=== PATIENT | male | born 1965 | race Caucasian/White ===

== ENCOUNTER 2025-05-06 14:23 | Inpatient (IN) | payer MEDICAID ==
[~2025-05-06] VITALS: Ht 190.5 cm; Wt 159.1 kg
[~2025-05-06 14:23] MED LIST: IBUP-1985 PO
--- NOTE | 2025-05-06 15:46 | ELECTROCARDIOGRAPH REPORT ---
[facility] Test Date: 2025-05-06 Test Time: 15:44:23 Pat Name: LOUISA GALEANO Department: [facility] Room: ORTHO [facility] Gender: M [employer]: : 1965 Requested By: STUART TOLEDO Order Number: [id number] Reading MD: Dr. Garry Nguyễn Measurements Intervals [place] Rate: 63 P: 65 MO: 214 QRS: 61 QRSD: 115 T: 77 QT: 471 QTc: 483 Interpretive Statements Sinus rhythm Borderline prolonged MO interval Nonspecific intraventricular conduction delay Electronically Signed On 05-07-2025 19:29:[address] Garry Nguyễn Please click the below link to view image of tracing.
[2025-05-06 16:02] LABS: MEAN PLATELET VOLUME 8.7 FL (7.4-10.4); RED CELL DISTRIBUTION WIDTH 16.5 % (11.5-14.5)
[2025-05-06 16:30] LABS: CREATININE 1.12 MG/DL (0.60-1.10); PRO BRAIN NATRIURETIC PEPTIDE 290 PG/ML (0-125); TOTAL CARBON DIOXIDE 25.0 MMOL/L (24-32); eCRCL 82 ML/MIN; eGFR 66 ML/MIN
--- NOTE | 2025-05-06 16:36 | RADIOLOGY REPORT ---
DI CHEST,SINGLE VIEW, HISTORY: CP COMPARISON: CHEST,SINGLE VIEW on DOS: 08/09/20 CHEST,SINGLE VIEW on DOS: 08/09/20 TECHNICAL DATA: 1 view of the chest was obtained. FINDINGS: Lines and tubes: None Cardiomediastinal silhouette: Prominent Pulmonary vasculature: Prominent Lung expansion: normal Lung airspace: normal Lung interstitium: normal Pleura: normal Pneumothorax: no Bones: Unremarkable Other: no IMPRESSION: Cardiomegaly with pulmonary vascular congestion.
--- NOTE | 2025-05-06 16:58 | Physician Documentation ---
History of Present Illness ~ Chief Complaint: Leg Pain Stated Complaint: LEG CRAMPS Time Seen by MD: 15:12 Mode of Arrival: EMS HPI 60-year-old male presents to the ED with a complaint of leg cramps x1 day. He states that he used methamphetamine yesterday was walking in his developed increased pain in his lower extremities. Patient also has bilateral lower extremity edema. He says that he has does not have congestive heart failure because he has got that is squared away Reports mild increasing shortness of breathing. Appears diaphoretic,denies any ,chest pain nausea vomiting Day of Onset: May 06, 2025 Tetanus witin 5 years: Yes Medication Reconciliation Allergies: Coded Allergies: Penicillins (Verified Allergy, Unknown, 05/06/25) Miscellaneous Medications Home Med List (No Home Medications), (Reported) Discontinued Medications Ibuprofen (Ibuprofen), 1 TAB PO Q8H PRN for pain Discontinued Reason: patient no longer taking Past Medical History Past Medical History: No Pertinent History Past Surgical History: no surgical history Patient History: Patient reports no known family medical history. Drug Use: marijuana, methamphetamine Lives with: Family Lives In: Home Review of Systems All Other Systems at this time: Reviewed and Negative ROS As stated above in the HPI, otherwise all systems are reviewed and negative. Physical Exam Vital Signs: Temperature: 98.3, Source: Oral, Heart Rate: 64, Respiratory Rate: 16, BP: 142/67, Pulse Oximetry: 93, Weight: 159.090 Oxygen Flow Rate: 0 Physical Exam General: Alert diaphoretic. Cardiovascular: Regular rate and rhythm, no murmurs. Gastrointestinal: Soft, nontender, nondistended. Bowels sounds present. Extremities: Gross anasarca bilateral lower extremities Neurologic: Oriented x4. Psychiatric: Normal mood and affect. Progress Results/Orders Results/Orders Orders - SILVANO TOLEDO SURVEY TECHNICIAN Chest,Single View (05/06/25 15:34) Monitor (05/06/25 15:34) Saline Lock (05/06/25 15:34) Oxygen (05/06/25 15:34) Ct Abdomen Pelvis (05/06/25 17:07) Completed Orders - SILVANO TOLEDO SURVEY TECHNICIAN Chest,Single View (05/06/25 15:34) Cbc/Diff (05/06/25 15:34) BMP (05/06/25 15:34) PBNP (05/06/25 15:34) Electrocardiogram (05/06/25 15:34) Hs Troponin I W Calculations (05/06/25 15:34) Hs Troponin I W Calculations (05/06/25 17:34) Hs Troponin I W Calculations (05/06/25 18:34) Cardiac Ptt (05/06/25 16:40) Pt Inr (05/06/25 16:40) D-Dimer (05/06/25 16:40) Magnesium Sulf-Water 2g/50ml (Magnesium (05/06/25 16:50) Ct Abdomen Pelvis (05/06/25 17:07) Iohexol 300mg/Ml 100ml Inj. (Omnipaque-3 (05/06/25 16:59) CMP (05/06/25 17:30) LA (05/06/25 17:32) Hgb A1c (05/06/25 15:53) CK (05/06/25 17:47) Ethanol (05/06/25 17:47) MG (05/06/25 17:47) PBNP (05/06/25 17:47) PHOS (05/06/25 17:47) TSH (05/06/25 17:47) Ua W/Microscopic, Cult If Ind (05/06/25 20:20) Medications Received in ER Medications (Trade) Dose Ordered Sig/Ama Route PRN Reason Start Time Stop Time Status Last Admin Dose Admin Magnesium Sulfate 50 ml @ 25 mls/hr ONCE ONCE IV 05/06/25 16:50 05/06/25 18:49 DC 05/06/25 17:48 25 MLS/HR Sodium Chloride 1,000 ml @ 20 mls/hr Q48H IV 05/06/25 17:50 05/06/25 18:56 20 MLS/HR (K-DUR tablet) 20 meq Q4H PRN PO Potassium 3.1-3.4 05/06/25 17:50 05/09/25 17:49 05/06/25 18:57 20 MEQ Vital Signs 05/06/25 05/06/25 05/06/25 05/06/25 14:40 15:23 15:25 16:45 Temp 97.8 98.3 Pulse 75 64 62 Resp 22 16 16 16 B/P (MAP) 130/70 142/67 (92) 117/58 (77) Pulse Ox 96 93 94 O2 Flow Rate 0 0 Laboratory Tests Test 05/06/25 15:53 05/06/25 17:47 White Blood Count 5.7 Red Blood Count 4.11 L Hemoglobin 13.2 L Hematocrit 38.1 L Mean Corpuscular Volume 92.7 Mean Corpuscular Hemoglobin 32.1 H Mean Corpuscular Hemoglobin Concent 34.6 Red Cell Distribution Width 16.5 H Platelet Count 45 *L Mean Platelet Volume 8.7 Neutrophils (%) (Auto) 67.7 Lymphocytes (%) (Auto) 14.8 L Monocytes (%) (Auto) 15.0 H Eosinophils (%) (Auto) 1.8 Basophils (%) (Auto) 0.7 Neutrophils # (Auto) 3.8 Lymphocytes # (Auto) 0.8 L Monocytes # (Auto) 0.9 Eosinophils # (Auto) 0.1 Basophils # (Auto) 0.0 CBC Comment Prothrombin Time 13.5 H INR International Normalized Ratio 1.4 APTT (Heparin Protocol) 29 L D-Dimer 0.96 H D-Dimer Comment Coagulation Comments Sodium Level 138 134 L Potassium Level 3.2 L 3.2 L Chloride Level 106 102 Carbon Dioxide Level 25.0 26.3 Anion Gap 7 L 6 L Blood Urea Nitrogen 23 H 23 H Creatinine 1.12 H 0.89 Estimated GFR/1.73 m2 66 87 BUN/Creatinine Ratio 20.5 H 25.8 H Glucose Level 107 H 84 Hemoglobin A1c 5.0 Calcium Level 8.4 L 8.3 L Troponin I High Sensitivity 71 63 Pro-B-Type Natriuretic Peptide 290 H 248 H Albumin 3.0 L 2.8 L Chemistry Comments HIV (1&2) Antibody Non-reactive Lactic Acid Level 3.3 H Phosphorus Level 3.3 Magnesium Level 9.7 *H Total Bilirubin 4.2 H Aspartate Amino Transf (AST/SGOT) 87 H Alanine Aminotransferase (ALT/SGPT) 42 Alkaline Phosphatase 82 Total Creatine Kinase 1683 H Troponin I High Sens Percent Delta 11 Troponin I Hi Sens Absolute Change -8 Total Protein 7.0 Globulin 4.2 Albumin/Globulin Ratio 0.7 L Thyroid Stimulating Hormone (TSH) 2.94 Ethyl Alcohol Level < 10 Medical Decision Making Findings This 60-year-old male came in for concerns over leg cramps. Departure Disposition: ADMITTED INPATIENT Impression: Primary Impression: Leg cramps Additional Impression: Heart failure Referrals: NO PRIMARY CARE PROVIDER (PCP) Signature Scribe Signature: b Attestation: Scribed for Silvano Toledo [employer] Department Chair by Silvano Yi NP . 05/06/25 22:54 SILVANO TOLEDO NP May 06, 2025 16:58
[2025-05-06] MEDS ORDERED: iohexol 300mg/ml 100ml inj. ONE (16:59)
[2025-05-06 17:10] LABS: INR 1.4 INR
[2025-05-06] MEDS: magnesium sulf-water 2g/50mL 50 ML IV ONE (17:48)
[2025-05-06] MEDS ORDERED: magnesium hydroxide 30ml (MOM) UD suspension PO PRN (17:50)
[2025-05-06] MEDS ORDERED: bisacodyl 10mg suppository rectal RC PRN (17:50)
[2025-05-06] MEDS ORDERED: magnesium sulf-water 2g/50mL 50 ML IV PRN (17:50)
[2025-05-06] MEDS ORDERED: magnesium Cl slow-release 64mg tablet PO PRN (17:50)
[2025-05-06] MEDS ORDERED: potassium Cl 40MEQ/1/2NS 520ml 520 ML IV PRN (17:50)
[2025-05-06] MEDS ORDERED: magnesium sulf-water 4G/100mL 100 ML IV PRN (17:50)
[2025-05-06] MEDS ORDERED: ondansetron 4mg rapidly disintigrating tab PO PRN (17:50)
[2025-05-06] MEDS ORDERED: HYDROcodone/acetaminophen 10/325mg tab PO PRN (17:50)
[2025-05-06] MEDS ORDERED: mag hydrox/Alum hydrox/simeth 30ml oral suspension PO PRN (17:50)
--- NOTE | 2025-05-06 17:50 | RADIOLOGY REPORT ---
Indication: weakness Technique: CT axial images of the abdomen and pelvis are obtained with intravenous contrast. Coronal and sagittal reformats were obtained. Radiation Dose Information: CTDI volume is 33 mGy. Dose-length product is 2050 mGy*cm Comparison: None FINDINGS: Lung bases demonstrate atelectasis. Adrenal glands unremarkable. Spleen enlarged measuring 19 cm AP. Pancreas unremarkable. No CT eviden ce for cholelithiasis. Cirrhotic morphology liver. No enhancing hepatic lesion. Sequela of portal hypertension including gastroesophageal varices, perisplenic varices, gastro renal shunt. Small hiatal hernia. Stomach is relatively nondistended. Small bowel loops are distended up to appro ximately 3.5 cm. Colonic diverticular disease. Moderate volume stool in the colon.m no secondary signs for appendiciti s. Abdominal aorta normal in caliber. Atherosclerotic disease. Bladder partially distended. No free pel griffin fluid. Fat containing left inguinal hernia measuring 3.4 x 4 cm. No inguinal lymphadenopathy. Mesenteric haziness / stranding with small lymph nodes. Moderate bilateral sacroiliac degenerative joint disease. Moderate thoracolumbar degenerative disc di sease. Moderate to advanced lumbar facet hypertrophic changes. IMPRESSION: Distention of small-bowel loops up to 3.5 cm which could be secondary to bowel obstruction, ileus. R ecommend surgical consultation for evaluation. Mesenteric haziness/ stranding with small lymph nodes which can be secondary to infectious, inflammat ory etiologies, sclerosing mesenteritis/ mesenteric panniculitis. Cirrhotic morphology liver with sequela of portal hypertension including gastroesophageal, splenic va rices, severe splenomegaly. Atherosclerotic disease. Colonic diverticular disease. Other findings as described above.
[2025-05-06] MEDS: furosemide 10 MG/1 ML 10ml inj IV ONE ×2 (18:00→20:12)
--- NOTE | 2025-05-06 18:08 | HISTORY AND PHYSICAL ---
History & Physical Providers to CC ~ chief complaint, bilateral lower extremity edema, cramps History of Present Illness Reason for Admit\Complaint: As above History of Present Illness This is a 60-year-old male, with history of multiple medical problems including chronic amphetamine abuse including currently, morbid obesity BMI 43, hypertension, liver cirrhosis associated with portal hypertension splenomegaly, and thrombocytopenia platelets 45, chronic kidney disease, CHF systolic ejection fraction 50% 2020, presented today to emergency department coming from detention, with chief complaint bilateral lower extremity edema associated with cramps; in addition presents to the ED with a complaint of leg cramps x1 day. He states that he used methamphetamine yesterday was walking in his developed increased pain in his lower extremities. Patient also has bilateral lower extremity edema. He says that he has does not have congestive heart failure because he has got that is squared awayReports mild increasing shortness of breathing. Appears diaphoretic,denies any ,chest pain nausea vomiting. In emergency department he was evaluated by medical provider, diagnosed with liver cirrhosis portal hypertension splenomegaly severe thrombocytopenia hypokalemia morbid obesity, and decision was made to admit patient for further evaluation and treatment, no additional complaint or concern. Allergies: Coded Allergies: Penicillins (Verified Allergy, Unknown, 05/06/25) Active prescriptions I reviewed reconciled Home Medications Home Medications Active Ibuprofen 600 Mg Tablet 1 Tab PO Q8H PRN 5 Days Past Medical History Past Medical History As in HPI Past Surgical History Surgical History Comment As in HPI Family History Family History: Family history was reviewed; no changes noted. Past Social History Social History Comment Positive for chronic amphetamine abuse including currently, deny alcohol abuse and tobacco abuse, just come in from long-term now, poor social support Health Maintenance Health Maintenance None ROS ROS Constitutional : no fever , no chills, or weakness. No diaphoresis. Allergic/Immunologic, no lymphadenopathy, no hives, no skin eruptions. Eyes, no recent visual changes, no eye pain, no photophobia. Ears, nose, mouth, throat, no sore throat, no nosebleed, no ear pain. Cardiovascular, no palpitations, skipped beats, chest pain, no peripheral edema, Respiratory, no dyspnea, orthopnea, cough, hemoptysis, chest wall pain. Gastrointestinal, no abdominal pain, nausea, vomiting, constipation or diarrhea. : no dysuria, hematuria, pelvic pain, urethral d/c. Endocrine, no polyuria, polydipsia, recent unintentional weight gain or loss. Hematologic/Lymphatic, no petechiae, no enlarged lymph nodes, no bone pain. Integumentary, no rash, no skin lesions, Musculoskeletal, no muscle aches, or pain, no muscle cramps, no recent change in gait positive for bilateral lower extremity Neurological, no dizziness, no headache, no syncope, no paresthesia. Psychiatric, no delusions, visual hallucinations, or hearing hallucinations. ROS - in rest is as in HPI. Exam Vitals: Vital Signs Date Time Temp Pulse Resp B/P (MAP) Pulse Ox O2 Delivery O2 Flow Rate FiO2 05/06/25 15:25 16 05/06/25 15:23 98.3 64 93 0 Vital signs, stable ,afebrile. Pulse Oximetry reflects adequate oxygenation. BMI is 43, weight 159 kg General: well developed, well nourished. Awake , alert, intermittently confused, and oriented x4, resting comfortably in the bed, in no acute distress . Skin: Warm, dry, no pallor, no rash or petechiae. HEENT: Atraumatic, normocephalic, EOMI, anicteric sclera B; pink conjunctiva; PERRLA, normal oropharynx, moist oral and nasal mucosa. Tympanic membrane , nose , throat clear. Neck: Trachea midline. Supple, full range of motion, no JVD, bruit , hepatojugular reflex , lymphadenopathy or masses, or other lesions Cardiac: Regular rhythm, regular rate no murmurs, rubs, or gallops. Normal S1 and S2, no S3 noticed. PMI is normal. Respiratory: Equal breath sounds bilaterally, no tachypnea; lungs clear to auscultation bilaterally, no wheezing ,rub or rales, or crackles. Chest wall is symmetric and without deformity. No signs of trauma. Chest wall is nontender. No signs of respiratory distress. Resonance is normal upon percussion bilaterally. Gastrointestinal: Abdomen symmetric, non-distended, soft, non-tender, normal bowel sounds x4 quadrant, normoactive, no hepatosplenomegaly , no masses , no bruit, no flank pain bilaterally. No voluntary guarding, rebound, or rigidity. No tenderness to percussion. No pulsatile masses. Equal femoral pulses. No Wang's sign or McBurney point tenderness. Back; no CVA tenderness bilaterally, no deformities. Neck and back are without deformity as well. No tenderness noted on palpation of the spinous processes. Spinous processes are midline. Cervical, thoracic, and lumbar paraspinal muscles are not tender and are without spasm. : normal external genitalia, without lesions, swelling, masses or tenderness. Musculoskeletal: Extremities, normal range of motion, non-tender, muscle strength 5/5 x 4. Negative Homans signs bilaterally on lower extremity. Distal pulses full symmetrical, no clubbing, cyanosis , bilateral lower extremity plus three edema up to the thigh Neurological: Speech is clear, alert, and oriented x 4. No motor or sensory deficit, deep tendon reflexes normal, cerebellar intact. Cranial nerves II-XII intact. Psych: Alert and or appropriate, normal affect. Vascular: Good distal pulses, which are equal x4; capillary refill less than 2 seconds. Lymphatic, no lymphadenopathy. Diagnostic Data Last Recorded Lab Results: 05/06/25 1553 05/06/25 1553 Diagnostic Data: Laboratory Tests Test 05/06/25 15:53 Prothrombin Time 13.5 SECONDS (9.0-12.0) H INR International Normalized Ratio 1.4 INR APTT (Heparin Protocol) 29 SECONDS (45-60) L D-Dimer 0.96 MG/L FEU (0-0.50) H D-Dimer Comment Coagulation Comments Advance Care Planning Advanced Care plannin - 30 Minutes Additional Plan Assessment Liver cirrhosis associated with portal hypertension and severe splenomegaly Chronic amphetamine abuse including currently, Acute amphetamine intoxication Hypokalemia Morbid obesity BMI 43 Severe thrombocytopenia, platelets 45 CHF systolic in exacerbation Hypertension poor control on no medications Metabolic encephalopathy secondary to amphetamine intoxication Chronic kidney disease Plan IV Lasix Transfuse platelets prn Additional lab work pending Serial troponin EKG Nutrition consult Substance abuse navigator consult Echocardiography pending CT of the head and CT of the chest pending Control blood pressure Reconciled home medications DVT gastropathy prophylaxis addressed Sepsis Screening Reassessment Date: May 06, 2025 Date of Service: May 06, 2025 Billing Provider: CECILIA CHEUNG MD Common Visit Codes: 24971-[id number] INP/OBS CARE (HIGH) Secondary Visit Codes: 74494-[id number] CARE PLAN 30 MINUTES CECILIA CHEUNG MD May 06, 2025 18:08
[2025-05-06 18:19] LABS: CREATININE 0.89 MG/DL (0.60-1.10); TOTAL CARBON DIOXIDE 26.3 MMOL/L (24-32); eCRCL 103 ML/MIN; eGFR 87 ML/MIN
--- NOTE | 2025-05-06 18:35 | RADIOLOGY REPORT ---
Exam: CT CT HEAD History: ALOC Technique: [address] images through the posterior fossa and the supratentorial compart ment were acquired without contrast and imaged using soft tissue and bone algorithms. RADIATION DOSE: DLP 1335.34 mGy.cm; CTDI vol 67.24 mGy. Comparison: None Findings: There is no evidence of an intracranial hemorrhage, acute large vessel infarct, mass effect, or midli ne shift. There is mild cerebral atrophy. No significant calcification of the carotid siphons. Air-fluid levels in bilateral maxillary sinuses. The calvarium, orbits, remaining paranasal sinuses, sella, middle ears, and mastoids are unremarkable. The superficial soft tissues are within normal limits. Impression: 1. No acute intracranial abnormality. 2. Bilateral maxillary sinus disease.
--- NOTE | 2025-05-06 18:44 | RADIOLOGY REPORT ---
EXAM: CT CT CHEST History: Sepsis Comparison Study: DI CHEST,SINGLE VIEW on DOS: 05/06/25, CHEST,SINGLE VIEW on DOS: 08/09/20 TECHNIQUE: Multidetector CT of the chest was performed. Imaging was performed without IV contrast. Ax ial, coronal, and sagittal multiplanar reformats were obtained from the axial data set by the technol fe. Radiation Dose : CTDI vol 18.68 mGy, DLP 645.6 mGy*cm. Findings: Lungs: Bilateral dependent atelectasis. The lungs are otherwise clear. Pleura: Unremarkable Heart/Great vessels: Mild cardiomegaly. Moderate coronary atherosclerosis. Mediastinum: Small hiatal hernia. Unremarkable Soft tissues/Bones: Moderate multilevel degenerative changes of the thoracic spine Splenomegaly. Multiple small retroperitoneal lymph nodes. Impression: 1. No acute cardiopulmonary disease. 2. Mild cardiomegaly. 3. Splenomegaly. 4. Multiple small retroperitoneal lymph nodes, nonspecific.
[2025-05-06 18:54] LABS: PHOSPHORUS 3.3 MG/DL (2.3-4.5)
[2025-05-06 18:55] LABS: ETHANOL < 10 MG/DL (<10)
[2025-05-06] MEDS: normal saline 1000ml 1,000 ML IV SCH (18:56)
[2025-05-06] MEDS: potassium Cl 20 mEq SR tablet PO PRN (18:57)
[2025-05-06 19:16] LABS: PRO BRAIN NATRIURETIC PEPTIDE 248 PG/ML (0-125)
[2025-05-06] MEDS: furosemide 10 MG/1 ML 10ml inj IV SCH (20:00)
[2025-05-06] MEDS: K and/or MAG REPLACEMENT MC SCH (20:07)
[2025-05-06] MEDS: docusate sod 100mg capsule PO SCH (20:12)
[2025-05-06] MEDS ORDERED: NO HOME MEDS (20:20)
[2025-05-06 20:57] LABS: HIV ANTIBODY 1&2 RAPID NON-REACTIVE (Neg)
[2025-05-06 21:35] LABS: LEUKOCYTE ESTERASE ,URINE NEGATIVE (Neg); OCCULT BLOOD,URINE MODERATE (Neg)
[2025-05-06 21:36] LABS: UA COLLECTION TYPE URINAL
[2025-05-06 21:42] LABS: HYALINE CASTS 0-3 /LPF (NEGATIVE); MUCUS STRANDS MODERATE /LPF (Neg); NITRITES, URINE NEGATIVE (Neg); SQUAMOUS EPITHELIAL CELL,UR FEW /LPF (FEW)
[2025-05-06 21:44] LABS: AMORPHOUS URATES 1+
[2025-05-06 21:53] LABS: URINE AMPHETAMINE SCREEN POSITIVE (Neg); URINE BARBITUATE SCREEN NEGATIVE (Neg); URINE BENZODIAZEPINES SCREEN NEGATIVE (Neg); URINE CANNABINOID SCREEN POSITIVE (Neg); URINE COCAINE SCREEN NEGATIVE (Neg); URINE METHADONE SCREEN NEGATIVE (Neg); URINE OPIATE SCREEN NEGATIVE (Neg); URINE PHENCYCLIDINE SCREEN NEGATIVE (Neg)
[2025-05-07] VITALS (7 sets, daily range): BP systolic 120–134; BP diastolic 62–68; PULSE 52–68; RESP 15–22; TEMP 98–98.4; O2SAT 96–99
[2025-05-07] MEDS: potassium Cl 20 mEq SR tablet PO PRN (01:04)
[2025-05-07] MEDS: HYDROcodone/acetaminophen 5mg/325mg tablet PO PRN (05:35)
[2025-05-07 06:43] LABS: MEAN PLATELET VOLUME 8.9 FL (7.4-10.4); RED CELL DISTRIBUTION WIDTH 16.5 % (11.5-14.5)
[2025-05-07 07:09] LABS: CREATININE 0.87 MG/DL (0.60-1.10); LDL CHOLESTEROL 68 MG/DL (50-100); TOTAL CARBON DIOXIDE 27.6 MMOL/L (24-32); eCRCL 105 ML/MIN; eGFR 89 ML/MIN
[2025-05-07 07:10] LABS: CHOL/HDL RATIO 2.5 (0.00-4.99)
[2025-05-07] MEDS: pantoprazole 40mg Tablet.DR PO SCH (09:32)
--- NOTE | 2025-05-07 09:53 | PROGRESS NOTE ---
Daily Progress Note Providers to CC ~ feels better today, tolerating medication fine good appetite good sleep Central Line/PICC still needed: No Pascal-Non Protocol Pascal Indications Met/Not Met: F/C Indications Not Met Antibiotic Timeout Antibiotic Ordered?: No MRSA Education MRSA Education Provided to pt: No Subjective As above Objective Vital Signs Date Time Temp Pulse Resp B/P (MAP) Pulse Ox O2 Delivery O2 Flow Rate FiO2 05/07/25 06:35 16 05/07/25 02:05 99 Room Air 05/07/25 01:05 57 05/07/25 00:55 98.2 121/66 (84) 05/06/25 22:04 0 Vital signs, stable ,afebrile. Pulse Oximetry reflects adequate oxygenation. General: well developed, well nourished. Awake , alert, and oriented x4, resting comfortably in the bed, in no acute distress . Skin: Warm, dry, no pallor, no rash or petechiae. HEENT: Atraumatic, normocephalic, EOMI, anicteric sclera B; pink conjunctiva; PERRLA, normal oropharynx, moist oral and nasal mucosa. Tympanic membrane , nose , throat clear. Neck: Trachea midline. Supple, full range of motion, no JVD, bruit , hepatojugular reflex , lymphadenopathy or masses, or other lesions Cardiac: Regular rhythm, regular rate no murmurs, rubs, or gallops. Normal S1 and S2, no S3 noticed. PMI is normal. Respiratory: Equal breath sounds bilaterally, no tachypnea; lungs clear to auscultation bilaterally, no wheezing ,rub or rales, or crackles. Chest wall is symmetric and without deformity. No signs of trauma. Chest wall is nontender. No signs of respiratory distress. Resonance is normal upon percussion bilaterally. Gastrointestinal: Abdomen symmetric, non-distended, soft, non-tender, normal bowel sounds x4 quadrant, normoactive, no hepatosplenomegaly , no masses , no bruit, no flank pain bilaterally. No voluntary guarding, rebound, or rigidity. No tenderness to percussion. No pulsatile masses. Equal femoral pulses. No Wang's sign or McBurney point tenderness. Back; no CVA tenderness bilaterally, no deformities. Neck and back are without deformity as well. No tenderness noted on palpation of the spinous processes. Spinous processes are midline. Cervical, thoracic, and lumbar paraspinal muscles are not tender and are without spasm. : normal external genitalia, without lesions, swelling, masses or tenderness. Musculoskeletal: Extremities, normal range of motion, non-tender, muscle strength 5/5 x 4. Negative Homans signs bilaterally on lower extremity. Distal pulses full symmetrical, no clubbing, cyanosis , edema. Neurological: Speech is clear, alert, and oriented x 4. No motor or sensory deficit, deep tendon reflexes normal, cerebellar intact. Cranial nerves II-XII intact. Psych: Alert and or appropriate, normal affect. Vascular: Good distal pulses, which are equal x4; capillary refill less than 2 seconds. Lymphatic, no lymphadenopathy. 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, associated with portal hypertension and severe splenomegaly Chronic amphetamine abuse including currently, Acute amphetamine intoxication Hypokalemia Morbid obesity BMI 43 Severe thrombocytopenia, CHF systolic in exacerbation Hypertension poor control on no medications Metabolic encephalopathy secondary to amphetamine intoxication Chronic kidney disease Plan IV Lasix Transfuse platelets prn Additional lab work pending Serial troponin EKG Nutrition consult Substance abuse navigator consult Echocardiography pending CT of the head and CT of the chest completed Control blood pressure Reconciled home medications DVT gastropathy prophylaxis addressed Sepsis Screening Reassessment Date: May 07, 2025 Date of Service: May 07, 2025 Billing Provider: CECILIA CHEUNG MD Common Visit Codes: [id number] INP/OBS CARE(HIGH) CECILIA CHEUNG MD May 07, 2025 09:53
[2025-05-07] MEDS: ringers solution, lacted 1,000 ML IV ONE (16:00)
--- NOTE | 2025-05-07 16:00 | CARDIOLOGY REPORT ---
APPROVED REPORT EXAM: Comprehensive 2D, Doppler, and color-flow Echocardiogram. Patient Location: 402 Blood Pressure: 121/66 mmHg Heart Rate: 54 bpm Indications Congestive Heart Failure Methamphetamine Use NO PLASTERER ROUGH Previous ECHO: 01/10/16, [facility], EF: 50; modRVE/LAE; mMR 2D Dimensions LA Diam4.2 cm IVSd 0.9 (0.7-1.1cm) LVDd 4.6 cm PWd 1.1 (0.7-1.1cm) IVSs 1.4 (0.8-1.2cm) LVDs 3.2 (2.5-4.0cm) PWs 1.6 (0.8-1.2cm) LVOT Diameter 2.06 (1.8-2.4cm) LVEF(%) 57.2 (>50%) Ao Asc Diam.3.46 cm IVC 22.95 mmFS (%) 30.0 % SV 56.0 ml CO 3.1 L/min M-Mode Dimensions Left Atrium(MM) 4.20 (2.5-4.0cm) Aortic Root 3.31 (2.2-3.7cm) Aortic Cusp Exc 2.07 (1.5-2.0cm) Aortic Valve AoV Peak Rico. 206.5 cm/s AoV VTI 38.3 cm AO Peak GR. 17.1 mmHg AO Mean GR. 8 mmHg LVOT VTI 23.09 cm LVOT Peak Rico. 111.3 cm/s LEELA(VTI)/BSA 2.01 cm2/m2 LEELA (VTI) 2.01 cm2 Mitral Valve MV E Velocity 64.7 cm/s MV Peak Gr. 3 mmHg MV DECEL TIME 384 ms MV A Velocity 85.3 cm/s MV PHT 88 ms E/A Ratio 0.8 MVA (PHT) 2.50 cm2 MV VMax88.5 cm/s TDI Lateral E' P. V10.90 cm/s E/Lateral E' 5.9 Pulmonary Valve PAEDP12.63 mmHg Tricuspid Valve TR P. Velocity 239 cm/s RAP ESTIMATE 10 mmHg TR Peak Gr. 23 mmHg RVSP 33 mmHg LEFT VENTRICLE Normal LV size and wall thickness. Overall systolic function is normal. Overall LVEF is 55-60%. RIGHT VENTRICLE Right ventricle is mildly dilated with adequate function. ATRIA Left atrium is mildly dilated. AORTIC VALVE Trileaflet AV appears mildly sclerotic without stenosis. No insufficiency. MITRAL VALVE Mild mitral annular calcification without stenosis. Trace regurgitation. TRICUSPID VALVE The tricuspid valve is normal in structure with trace regurgitation. PULMONIC VALVE Pulmonic valve is grossly normal in structure with physiologic insufficiency. GREAT VESSELS The aortic root is normal in size. The ascending aorta is normal in size. IVC is dilated and collapse s greater than 50% with inspiration. PERICARDIUM Normal pericardium. No effusion. Other Information Study Quality: Adequate Conclusion Overall LVEF is 55-60%. Normal LV size and wall thickness. Overall systolic function is normal. Right ventricle is mildly dilated with adequate function. Trileaflet AV appears mildly sclerotic without stenosis. No insufficiency. Mild mitral annular calcification without stenosis. Trace regurgitation. Pulmonic valve is grossly normal in structure with physiologic insufficiency. Normal pericardium. No effusion.
--- NOTE | 2025-05-07 18:05 | VASCULAR REPORT ---
BILATERAL LOWER EXTREMITY VENOUS DUPLEX REASON FOR EXAMINATION: Bilateral lower extremity pain and edema. COMPARISON: None TECHNIQUE: Using real-time freeze-frame technique with a high-frequency transducer, multiple longitu dinal and transverse sections were obtained. Simultaneous color flow and spectral Doppler imaging wa s performed. FINDINGS: There is good visualization of the deep venous system with no intraluminal filling defects identified. Normal venous compressibility is seen and there is flow augmentation. Color flow Doppler imaging is unremarkable. IMPRESSION: NO EVIDENCE OF DEEP VENOUS THROMBOSIS.
[2025-05-07] MEDS: ondansetron/PF 4mg/2ml inj IV PRN (21:25)
[2025-05-08 06:00] VITALS: BP 114/58; PULSE 59; RESP 16; TEMP 97.6; O2SAT 93
[2025-05-08 06:23] LABS: MEAN PLATELET VOLUME 9.5 FL (7.4-10.4); RED CELL DISTRIBUTION WIDTH 16.2 % (11.5-14.5)
[2025-05-08 06:28] LABS: CREATININE 0.94 MG/DL (0.60-1.10); TOTAL CARBON DIOXIDE 30.4 MMOL/L (24-32); eCRCL 97 ML/MIN; eGFR 81 ML/MIN
[2025-05-08 10:00] VITALS: BP 135/63; PULSE 57; RESP 20; TEMP 98.3; O2SAT 94
[2025-05-08] MEDS: ringers solution, lacted 1,000 ML IV ONE (13:20)
[2025-05-08] MEDS: lactulose 20gm/30ml cup PO SCH (13:45)
[2025-05-08] MEDS: normal saline 1000ml 1,000 ML IV SCH (14:50)
--- NOTE | 2025-05-08 16:11 | PROGRESS NOTE ---
Daily Progress Note Providers to CC ~ no new complaint, resting comfortably in the bed Central Line/PICC still needed: No Pascal-Non Protocol Pascal Indications Met/Not Met: F/C Indications Not Met Antibiotic Timeout Antibiotic Ordered?: Yes MRSA Education MRSA Education Provided to pt: Yes Subjective As above Objective Vital Signs Date Time Temp Pulse Resp B/P (MAP) Pulse Ox O2 Delivery O2 Flow Rate FiO2 05/08/25 10:00 98.3 57 20 135/63 (87) 94 Room Air 05/06/25 22:04 0 Vital signs, stable ,afebrile. Pulse Oximetry reflects adequate oxygenation. General: well developed, well nourished. Awake , intermittently confused, alert, and oriented x4, resting comfortably in the bed, in no acute distress . Skin: Warm, dry, no pallor, no rash or petechiae. HEENT: Atraumatic, normocephalic, EOMI, anicteric sclera B; pink conjunctiva; PERRLA, normal oropharynx, moist oral and nasal mucosa. Tympanic membrane , nose , throat clear. Neck: Trachea midline. Supple, full range of motion, no JVD, bruit , hepatojugular reflex , lymphadenopathy or masses, or other lesions Cardiac: Regular rhythm, regular rate no murmurs, rubs, or gallops. Normal S1 and S2, no S3 noticed. PMI is normal. Respiratory: Equal breath sounds bilaterally, no tachypnea; lungs clear to auscultation bilaterally, no wheezing ,rub or rales, or crackles. Chest wall is symmetric and without deformity. No signs of trauma. Chest wall is nontender. No signs of respiratory distress. Resonance is normal upon percussion bilaterally. Gastrointestinal: Abdomen symmetric, non-distended, soft, non-tender, normal bowel sounds x4 quadrant, normoactive, no hepatosplenomegaly , no masses , no bruit, no flank pain bilaterally. No voluntary guarding, rebound, or rigidity. No tenderness to percussion. No pulsatile masses. Equal femoral pulses. No Wang's sign or McBurney point tenderness. Back; no CVA tenderness bilaterally, no deformities. Neck and back are without deformity as well. No tenderness noted on palpation of the spinous processes. Spinous processes are midline. Cervical, thoracic, and lumbar paraspinal muscles are not tender and are without spasm. : normal external genitalia, without lesions, swelling, masses or tenderness. Musculoskeletal: Extremities, normal range of motion, non-tender, muscle strength 5/5 x 4. Negative Homans signs bilaterally on lower extremity. Distal pulses full symmetrical, no clubbing, cyanosis , edema. Neurological: Speech is clear, alert, and oriented x 4. No motor or sensory deficit, deep tendon reflexes normal, cerebellar intact. Cranial nerves II-XII intact. Psych: Alert and or appropriate, normal affect. Vascular: Good distal pulses, which are equal x4; capillary refill less than 2 seconds. Lymphatic, no lymphadenopathy. 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, associated with portal hypertension and severe splenomegaly Metabolic encephalopathy associated with hyper ammonia anemia Chronic amphetamine abuse including currently, Acute amphetamine intoxication Hypokalemia Morbid obesity BMI 43 Severe thrombocytopenia, CHF systolic in exacerbation Hypertension poor control on no medications Chronic kidney disease Plan IV fluids, Transfuse platelets prn Additional lab work pending Serial troponin EKG Nutrition consult Substance abuse navigator consult Echocardiography completed CT of the head and CT of the chest completed Control blood pressure Lactulose rifaximin on board Reconciled home medications DVT gastropathy prophylaxis addressed Sepsis Screening Reassessment Date: May 08, 2025 Date of Service: May 08, 2025 Billing Provider: CECILIA CHEUNG MD Common Visit Codes: [id number] INP/OBS CARE(HIGH) CECILIA CHEUNG MD May 08, 2025 16:11
[2025-05-08 18:00] VITALS: BP 103/58; PULSE 64; RESP 20; TEMP 98.3; O2SAT 94
[2025-05-08] MEDS: rifaximin 550mg tablet PO SCH (19:40)
[2025-05-08 22:00] VITALS: BP 109/45; PULSE 63; RESP 18; TEMP 98.5; O2SAT 99
[2025-05-09 06:00] VITALS: BP 141/57; PULSE 61; RESP 17; TEMP 97.7; O2SAT 95
[2025-05-09 06:59] LABS: MEAN PLATELET VOLUME 9.7 FL (7.4-10.4); RED CELL DISTRIBUTION WIDTH 16.4 % (11.5-14.5)
[2025-05-09 07:48] LABS: CREATININE 0.88 MG/DL (0.60-1.10); TOTAL CARBON DIOXIDE 27.8 MMOL/L (24-32); eCRCL 104 ML/MIN; eGFR 88 ML/MIN
[2025-05-09 07:54] LABS: BANDS% (MANUAL) 1.0 % (0-10); EOSINOPHILS % (MANUAL) 2.0 % (0-6); LYMPHOCYTES % (MANUAL) 21.0 % (21-51); MONOCYTES % (MANUAL) 17.0 % (2-12); NEUTROPHILS % (MANUAL) 57.0 % (42-75); PLATELET ESTIMATE DECREASED; REACTIVE LYMPHOCYTES % 2.0 % (0-0)
[2025-05-09 10:00] VITALS: BP 133/64; PULSE 57; RESP 17; TEMP 97.6; O2SAT 98
--- NOTE | 2025-05-09 15:50 | PROGRESS NOTE ---
Daily Progress Note Providers to CC ~ no new complaint today, resting comfortably in the bed Central Line/PICC still needed: No Pascal-Non Protocol Pascal Indications Met/Not Met: F/C Indications Not Met Antibiotic Timeout Antibiotic Ordered?: Yes MRSA Education MRSA Education Provided to pt: Yes Subjective As above Objective Vital Signs Date Time Temp Pulse Resp B/P (MAP) Pulse Ox O2 Delivery O2 Flow Rate FiO2 05/09/25 10:00 97.6 57 17 133/64 (87) 98 Room Air 05/06/25 22:04 0 Vital signs, stable ,afebrile. Pulse Oximetry reflects adequate oxygenation. General: well developed, well nourished. Awake , alert, and oriented x4, resting comfortably in the bed, in no acute distress . Skin: Warm, dry, no pallor, no rash or petechiae. HEENT: Atraumatic, normocephalic, EOMI, anicteric sclera B; pink conjunctiva; PERRLA, normal oropharynx, moist oral and nasal mucosa. Tympanic membrane , nose , throat clear. Neck: Trachea midline. Supple, full range of motion, no JVD, bruit , hepatojugular reflex , lymphadenopathy or masses, or other lesions Cardiac: Regular rhythm, regular rate no murmurs, rubs, or gallops. Normal S1 and S2, no S3 noticed. PMI is normal. Respiratory: Equal breath sounds bilaterally, no tachypnea; lungs clear to auscultation bilaterally, no wheezing ,rub or rales, or crackles. Chest wall is symmetric and without deformity. No signs of trauma. Chest wall is nontender. No signs of respiratory distress. Resonance is normal upon percussion bilaterally. Gastrointestinal: Abdomen symmetric, non-distended, soft, non-tender, normal bowel sounds x4 quadrant, normoactive, no hepatosplenomegaly , no masses , no bruit, no flank pain bilaterally. No voluntary guarding, rebound, or rigidity. No tenderness to percussion. No pulsatile masses. Equal femoral pulses. No Wang's sign or McBurney point tenderness. Back; no CVA tenderness bilaterally, no deformities. Neck and back are without deformity as well. No tenderness noted on palpation of the spinous processes. Spinous processes are midline. Cervical, thoracic, and lumbar paraspinal muscles are not tender and are without spasm. : normal external genitalia, without lesions, swelling, masses or tenderness. Musculoskeletal: Extremities, normal range of motion, non-tender, muscle strength 5/5 x 4. Negative Homans signs bilaterally on lower extremity. Distal pulses full symmetrical, no clubbing, cyanosis , edema. Neurological: Speech is clear, alert, and oriented x 4. No motor or sensory deficit, deep tendon reflexes normal, cerebellar intact. Cranial nerves II-XII intact. Psych: Alert and or appropriate, normal affect. Vascular: Good distal pulses, which are equal x4; capillary refill less than 2 seconds. Lymphatic, no lymphadenopathy. 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, associated with portal hypertension and severe splenomegaly Metabolic encephalopathy associated with hyperammonemia Chronic amphetamine abuse including currently, Acute amphetamine intoxication Hypokalemia Morbid obesity BMI 43 Severe thrombocytopenia, CHF systolic in exacerbation Hypertension poor control on no medications Rhabdomyolysis Chronic kidney disease Plan IV fluids, Transfuse platelets today Additional lab work pending Serial troponin EKG Nutrition consult Substance abuse navigator consult Echocardiography completed CT of the head and CT of the chest completed Control blood pressure Lactulose rifaximin on board Reconciled home medications DVT gastropathy prophylaxis addressed Sepsis Screening Reassessment Date: May 09, 2025 Date of Service: May 09, 2025 Billing Provider: CECILIA CHEUNG MD Common Visit Codes: [id number] INP/OBS CARE(HIGH) CECILIA CHEUNG MD May 09, 2025 15:50
[2025-05-09] MEDS: ringers solution, lacted 1,000 ML IV ONE (17:47)
[2025-05-09 18:00] VITALS: BP 145/70; PULSE 57; RESP 15; TEMP 98.9; O2SAT 97
[2025-05-09 20:00] VITALS: RESP 15; O2SAT 97
[2025-05-09 22:00] VITALS: BP 146/75; PULSE 63; RESP 18; TEMP 98.3; O2SAT 95
[2025-05-10 05:43] LABS: MEAN PLATELET VOLUME 8.8 FL (7.4-10.4); RED CELL DISTRIBUTION WIDTH 16.6 % (11.5-14.5)
[2025-05-10 06:00] VITALS: BP 121/54; PULSE 55; RESP 18; TEMP 98.1; O2SAT 97
[2025-05-10 06:04] LABS: CREATININE 0.71 MG/DL (0.60-1.10); TOTAL CARBON DIOXIDE 27.4 MMOL/L (24-32); eCRCL 129 ML/MIN; eGFR > 90 ML/MIN
[2025-05-10 07:19] LABS: BANDS% (MANUAL) 1.0 % (0-10); BASOPHILS % (MANUAL) 1.0 % (0-1); EOSINOPHILS % (MANUAL) 8.0 % (0-6); LYMPHOCYTES % (MANUAL) 19.0 % (21-51); MONOCYTES % (MANUAL) 14.0 % (2-12); NEUTROPHILS % (MANUAL) 57.0 % (42-75); PLATELET ESTIMATE DECREASED
[2025-05-10 10:00] VITALS: BP 109/58; PULSE 59; RESP 16; TEMP 98.5; O2SAT 95
--- NOTE | 2025-05-10 16:37 | PROGRESS NOTE ---
Daily Progress Note Providers to CC Feels better today resting comfortably in the bed ~ Central Line/PICC still needed: No Pascal-Non Protocol Pascal Indications Met/Not Met: F/C Indications Not Met Antibiotic Timeout Antibiotic Ordered?: Yes MRSA Education MRSA Education Provided to pt: Yes Subjective As above Objective Vital Signs Date Time Temp Pulse Resp B/P (MAP) Pulse Ox O2 Delivery O2 Flow Rate FiO2 05/10/25 10:00 98.5 59 16 109/58 (75) 95 Room Air 05/09/25 20:00 0.0 Vital signs, stable ,afebrile. Pulse Oximetry reflects adequate oxygenation. General: well developed, well nourished. Awake , alert, and oriented x4, resting comfortably in the bed, in no acute distress . Skin: Warm, dry, no pallor, no rash or petechiae. HEENT: Atraumatic, normocephalic, EOMI, anicteric sclera B; pink conjunctiva; PERRLA, normal oropharynx, moist oral and nasal mucosa. Tympanic membrane , nose , throat clear. Neck: Trachea midline. Supple, full range of motion, no JVD, bruit , hepatojugular reflex , lymphadenopathy or masses, or other lesions Cardiac: Regular rhythm, regular rate no murmurs, rubs, or gallops. Normal S1 and S2, no S3 noticed. PMI is normal. Respiratory: Equal breath sounds bilaterally, no tachypnea; lungs clear to auscultation bilaterally, no wheezing ,rub or rales, or crackles. Chest wall is symmetric and without deformity. No signs of trauma. Chest wall is nontender. No signs of respiratory distress. Resonance is normal upon percussion bilaterally. Gastrointestinal: Abdomen symmetric, non-distended, soft, non-tender, normal bowel sounds x4 quadrant, normoactive, no hepatosplenomegaly , no masses , no bruit, no flank pain bilaterally. No voluntary guarding, rebound, or rigidity. No tenderness to percussion. No pulsatile masses. Equal femoral pulses. No Wang's sign or McBurney point tenderness. Back; no CVA tenderness bilaterally, no deformities. Neck and back are without deformity as well. No tenderness noted on palpation of the spinous processes. Spinous processes are midline. Cervical, thoracic, and lumbar paraspinal muscles are not tender and are without spasm. : normal external genitalia, without lesions, swelling, masses or tenderness. Musculoskeletal: Extremities, normal range of motion, non-tender, muscle strength 5/5 x 4. Negative Homans signs bilaterally on lower extremity. Distal pulses full symmetrical, no clubbing, cyanosis , edema. Neurological: Speech is clear, alert, and oriented x 4. No motor or sensory deficit, deep tendon reflexes normal, cerebellar intact. Cranial nerves II-XII intact. Psych: Alert and or appropriate, normal affect. Vascular: Good distal pulses, which are equal x4; capillary refill less than 2 seconds. Lymphatic, no lymphadenopathy. 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, associated with portal hypertension and severe splenomegaly Metabolic encephalopathy associated with hyperammonemia Chronic amphetamine abuse including currently, Acute amphetamine intoxication Hypokalemia Morbid obesity BMI 43 Severe thrombocytopenia, CHF systolic in exacerbation Hypertension poor control on no medications Rhabdomyolysis Chronic kidney disease Plan IV fluids, Transfuse platelets completed, the reason improvement of platelets level Additional lab work pending Serial troponin EKG Nutrition consult Substance abuse navigator consult Echocardiography completed CT of the head and CT of the chest completed Control blood pressure Lactulose rifaximin on board Reconciled home medications DVT gastropathy prophylaxis addressed Awaiting placement to [facility] facility Date of Service: May 10, 2025 Billing Provider: CECILIA CHEUNG MD Common Visit Codes: [id number] INP/OBS CARE(HIGH) CECILIA CHEUNG MD May 10, 2025 16:37
[2025-05-10 18:00] VITALS: BP 137/75; PULSE 55; RESP 16; TEMP 97.7; O2SAT 97
[2025-05-10 20:00] VITALS: RESP 16; O2SAT 97
[2025-05-10 22:00] VITALS: BP 135/61; PULSE 60; RESP 20; TEMP 97.3; O2SAT 97
[2025-05-11 05:42] LABS: MEAN PLATELET VOLUME 9.7 FL (7.4-10.4); RED CELL DISTRIBUTION WIDTH 17.0 % (11.5-14.5)
[2025-05-11 06:04] LABS: CREATININE 0.74 MG/DL (0.60-1.10); TOTAL CARBON DIOXIDE 25.2 MMOL/L (24-32); eCRCL 124 ML/MIN; eGFR > 90 ML/MIN
[2025-05-11 06:45] VITALS: BP 134/63; PULSE 56; RESP 22; TEMP 98.2; O2SAT 97
[2025-05-11 08:15] VITALS: RESP 18
[2025-05-11] MEDS ORDERED: propranolol 10mg tablet PO ONE (08:25)
[2025-05-11 09:16] LABS: BANDS% (MANUAL) 1 % (0-10); EOSINOPHILS % (MANUAL) 3 % (0-6); MONOCYTES % (MANUAL) 12 % (2-12)
[2025-05-11 09:17] LABS: LYMPHOCYTES % (MANUAL) 20 % (21-51); NEUTROPHILS % (MANUAL) 64 % (42-75); PLATELET ESTIMATE DECREASED
[2025-05-11] MEDS ORDERED: PROP10TA10 PO (10:22)
[2025-05-11] MEDS ORDERED: PANT40TA54 PO (10:22)
[2025-05-11 10:30] VITALS: BP 158/70; PULSE 59; RESP 18; TEMP 98; O2SAT 97
[2025-05-11] MEDS ORDERED: lactose-reduced food (Ensure Enlive) - 237ml bottle PO SCH (13:00)
--- NOTE | 2025-05-11 14:54 | DISCHARGE SUMMARY ---
Discharge Summary Providers to CC ~ Discharge Summary Admission Diagnosis: Rhabdomyolysis, MARIFER Hospital Course DATE OF ADMISSION: 05/06/25 DATE OF DISCHARGE: 05/11/25 Discharge Diagnosis\Comment: Rhabdomyolysis Prrerenal MARIFER 2/2 dehydration/vasomotor nephropathy-POA Cirrhosis secondary to HCV Portal hypertension Severe splenomegaly Severe thrombocytopenia Hyperammonemia Chronic amphetamine abuse Acute amphetamine intoxication Metabolic encephalopathy secondary to amphetamine intoxication Class III obesity Chronic diastolic heart failure Hypertension Hypokalemia Operations\Procedures: None Consultants: None Complications: None Condition on DC: Stable New Medications: Pantoprazole Sodium (Pantoprazole Sodium) 40 Mg Tablet.dr 40 MG PO BKF for 30 Days, #30 TAB.SR Propranolol Hcl* (Inderal*) 10 Mg Tablet 10 MG PO Q12H for 30 Days, #60 TAB Continued Medications: Home Med List (No Home Medications) Each Discharge Summary: Hospital Course Gurvinder Zazueta is a 60-year-old male with a past medical history of cirrhosis, methamphetamine abuse portal hypertension, splenomegaly, thrombocytopenia, CHF who presented to the ED with chief complaint of bilateral lower extremity edema with associated symptoms of cramps x 1 day. Initial diagnostic findings were notable for elevated CK, elevated lactic acid, renal insufficiency, thrombocytopenia, UDS positive for amphetamines, CT abdomen/pelvis revealing c irrhosis, portal hypertension, gastroesophageal/splenic varices in severe splenomegaly. Pertinent negative findings were unremarkable serum lytes, normal bicarb, unremarkable pBNP, no leukocytosis, negative venous ultrasound of bilateral lower extremities. Patient was treated with intravenous fluids. A subsequent CK and lactic acid normalized. Patient did not experience further com plications throughout the entire hospital stay and made a good recovery. Patient was seen and examined on the day of discharge. On day of discharge, vss and labs notable for stable hemogram, stable thrombocytopenia without signs of bleeding. Hepatitis panel pending on day of discharge. All labs, diagnostic workups, discharge plan discussed with patient in details during visit before discharge. All questions and concerns answered to the best of my professional knowledge. Patient is to be discharged to [facility] and to follow-up with PCP within 2 weeks. Physical Exam General: A&Ox 3, NAD HEENT: Normocephalic, PERRLA Neck: Supple, trachea midline, no JVD Chest: Clear to auscultation bilaterally Cardiovascular: RRR, S1&S2 GI: Soft and nontender Extremities: No cyanosis/clubbing/or edema PREP COOK: CN II-XII intact, no focal deficits Musculoskeletal: No paraspinal muscle tenderness, no muscle spasm Skin: Warm and intact *Problems/Diagnosis: (1) Methamphetamine abuse Status: Chronic (2) Altered mental status Status: Acute Total Time Spent on D/C: > 30 Minutes Date of Service: May 11, 2025 Billing Provider: HAILEE STYLES Common Visit Codes: [id number] DISCH DAY >30min HAILEE STYLES May 11, 2025 14:48
[2025-05-11] MEDS ORDERED: propranolol 10mg tablet PO SCH (20:00)
== END 2025-05-11 12:30 | disposition home or self-care (01) | DRG 812 ==
LOC: ER 14:24 → ED HOLD 17:53 → ORTHO 4S 05-07 00:49
PROVIDERS: ADMIT Family Medicine; ATTEND Family Medicine
PROC: BW211ZZ Computerized Tomography (CT Scan) of Abdomen and Pelvis using Low Osmolar Contrast (ICD-10-PCS; principal; 2025-05-06)
PROC: 30233R1 Transfusion of Nonautologous Platelets into Peripheral Vein, Percutaneous Approach (ICD-10-PCS; 2025-05-09)
DX: T43.621A Poisoning by amphetamines, accidental (unintentional), initial encounter (principal); N17.0 Acute kidney failure with tubular necrosis; G92.8 Other toxic encephalopathy; K76.6 Portal hypertension; D69.6 Thrombocytopenia, unspecified; M62.82 Rhabdomyolysis; I50.32 Chronic diastolic (congestive) heart failure; I13.0 Hypertensive heart and chronic kidney disease with heart failure and stage 1 through stage 4 chronic kidney disease, or unspecified chronic kidney disease; E86.0 Dehydration; K74.60 Unspecified cirrhosis of liver; E87.6 Hypokalemia; Z20.822 Contact with and (suspected) exposure to COVID-19; D64.9 Anemia, unspecified; I86.8 Varicose veins of other specified sites; R16.1 Splenomegaly, not elsewhere classified; E78.5 Hyperlipidemia, unspecified; B19.20 Unspecified viral hepatitis C without hepatic coma; E66.01 Morbid (severe) obesity due to excess calories; N18.9 Chronic kidney disease, unspecified; F15.129 Other stimulant abuse with intoxication, unspecified; Z68.41 Body mass index [BMI] 40.0-44.9, adult; Z88.0 Allergy status to penicillin; Y92.89 Other specified places as the place of occurrence of the external cause
CPT/HCPCS: 36415; 36430; 70450; 71045; 71250; 74177; 80048; 80053; 80061; 80305; 80320; 81001; 82140; 82550; 83036; 83605; 83690; 83735; 83880; 84100; 84443; 84484; 85007; 85025; 85379; 85610; 85730; 86703; 86705; 86709; 86803; 86885; 86900; 86901; 87040; 87081; 87340; 87517; 87522; 87811; 93005; 93306; 93970; 96365; 97116; 97161; 97530; 99285; A6590; G0378; J1938; J2405; J7030; J7040; J7120; P9035; Q9967